=== PATIENT | female | born 1985 | race Caucasian/White ===

== ENCOUNTER 2022-03-20 22:12 | Emergency (ER) | payer OTHER, SELFPAY ==
--- NOTE | ~2022-03-20 | XR_ITS ---
EXAMINATION: XR chest 1V portable DATE: 03/21/2022 01:16 INDICATION: Flulike symptoms. TECHNIQUE: A single frontal view of the chest was obtained. COMPARISON: None. FINDINGS: There is no pneumonia, pleural effusion, or pneumothorax. The heart size is normal. IMPRESSION: 1. No acute cardiopulmonary disease. Reviewed, dictated and finalized at location A. FILLING MACHINE OPERATOR
[2022-03-20 22:24] VITALS: BP 134/89; PULSE 110; RESP 16; TEMP 36.7; O2SAT 100
--- NOTE | 2022-03-21 00:51 | ECG_ITS ---
Measurements Intervals [place] Rate: 95 P: 26 WI: 136 QRS: 60 QRSD: 108 T: 3 QT: 350 QTc: 441 Interpretive Statements SINUS RHYTHM NORMAL ECG NO PREVIOUS ECG AVAILABLE FOR COMPARISON Electronically Signed On 03-21-2022 9:06:29 SKIN DIVING TEACHER by Niranjan Villafana D.O.
--- NOTE | 2022-03-21 01:04 | ED.GENADULT ---
HPI - General Adult General Chief complaint: Upper Respiratory Infection Stated complaint: congestion, SIDDIQUI, Chills Time Seen by Provider: 03/21/22 00:52 History of Present Illness HPI narrative: this is a 37-year-old female with history of MS lupus presenting to ED with flu-like symptoms x5 days. Patient has been having cough congestion, headache body aches. She had decreased oral intake. She denies fever, chills, chest pain, difficulty breathing, nausea vomiting or diarrhea. Related Data Allergies Allergy/AdvReac Type Severity Reaction Status Date / Time amoxicillin AdvReac Hives Verified 03/20/22 23:17 Review of Systems Review of Systems: CONSTITUTIONAL: Denies night sweats. EYES: No eye pain ENT: admits rhinorrhea CARDIOVASCULAR: Denies palpitations RESPIRATORY: Denies hemoptysis GASTROINTESTINAL: Denies hematemesis GENITOURINARY: Denies hematuria. SKIN: Denies rash MUSCULOSKELETAL: Denies myalgia. NEUROLOGIC: Denies weakness. PSYCHIATRIC: Denies delusions PMFSH Past Medical History Medical History Hypothyroid Lupus Multiple sclerosis Social History Social History (Updated 03/21/22 @ 01:06 by Raheem Fox MD) Social History: patient denies use of alcohol, cigarettes or drugs. Exam Narrative: APPEARANCE: No apparent distress. Head: atraumatic. EYES: EOMI, NOSE: Atraumatic NECK: Trachea midline RESPIRATORY: No increased rate of breathing , clear to auscultation CARDIOVASCULAR: tachycardic ABDOMINAL: Non-distended MUSCULOSKELETAl: No obvious deformities NEURO: Alert. Moving 4/4 extremities SKIN:: Warm, dry. Normal color PSYCHIATRIC: Normal affect Course Vital Signs Vital signs: Vital Signs Temperature 98.1 F 03/20/22 22:24 Pulse Rate 110 H 03/20/22 22:24 Respiratory Rate 16 03/20/22 22:24 Blood Pressure 134/89 03/20/22 22:24 Pulse Oximetry 100 03/20/22 22:24 Oxygen Delivery Room Air 03/20/22 22:24 Temperature 98.1 F 03/21/22 03:00 Pulse Rate 91 03/21/22 03:00 Respiratory Rate 16 03/21/22 03:00 Blood Pressure 117/86 03/21/22 03:00 Pulse Oximetry 100 03/21/22 03:00 Oxygen Delivery Room Air 03/20/22 23:15 Medical Decision Making MDM Narrative Medical decision making narrative: This is a 37-year-old female ED with flu-like symptoms. She has abnormal vital signs. Chest x-ray will be obtained. She is given Tylenol for symptom control. She will be given of L fluid. Patient had a negative flu and COVID yesterday so they will not be repeated. Chest x-ray showed no acute cardiopulmonary process. Upon re-evaluation patient was feeling much better after she received fluid bolus. She will be discharged with Robitussin for her congestion instructions to drink plenty of fluids. She will return emergency department for condition has worsened Vital Signs Vital Signs: Vital Signs Temperature 98.1 F 03/20/22 22:24 Pulse Rate 110 H 03/20/22 22:24 Respiratory Rate 16 03/20/22 22:24 Blood Pressure 134/89 03/20/22 22:24 Pulse Oximetry 100 03/20/22 22:24 Oxygen Delivery Room Air 03/20/22 22:24 Temperature 98.1 F 03/21/22 03:00 Pulse Rate 91 03/21/22 03:00 Respiratory Rate 16 03/21/22 03:00 Blood Pressure 117/86 03/21/22 03:00 Pulse Oximetry 100 03/21/22 03:00 Oxygen Delivery Room Air 03/20/22 23:15 Lab Data Labs: Lab Results 03/21/22 Range/Units 01:26 POC Capillary Glucose 97 (65-105) mg/dl Discharge Plan Discharge Clinical Impression: Upper respiratory infection, Acute dehydration Patient Disposition: Home, Self-Care Condition: Stable Instructions: Antibiotic Form, Cold Symptoms (ED) Additional Instructions: Please use Robitussin for congestion. Please use Tylenol for body aches. Please make sure you are drinking plenty of fluids. Please follow-up your primary care physician. Prescriptions:
[2022-03-21] MEDS: ACETAMINOPHEN 500 MG TABLET 1000 MG PO (01:18)
[2022-03-21] MEDS: SODIUM CHLORIDE 0.9% IV 1,000 ML 999 ML IV CONT (01:22)
[2022-03-21 01:29] LABS: Glucose Point of Care 97 mg/dl (65-105)
[2022-03-21 03:00] VITALS: BP 117/86; PULSE 91; RESP 16; TEMP 36.7; O2SAT 100
== END 2022-03-21 03:29 | disposition home or self-care (01) ==
PROVIDERS: Emergency Provider Emergency Medicine
DX: J06.9 Acute upper respiratory infection, unspecified (principal); E86.0 Dehydration; E03.9 Hypothyroidism, unspecified; G35 Multiple sclerosis; M32.9 Systemic lupus erythematosus, unspecified
CPT/HCPCS: 71045; 82948; 93005; 96360; 99283; A9270; J7030